=== PATIENT | female | born 1990 | race African-American/Black ===

== ENCOUNTER 2020-11-01 09:17 | Emergency (ER) | payer MEDICAID, SELFPAY ==
[2020-11-01 09:46] VITALS: BP 105/61; PULSE 69; RESP 20; TEMP 36.3; O2SAT 99
--- NOTE | 2020-11-01 10:41 | ED.BACK ---
HPI - Back Pain/Injury General Chief Complaint: Back Pain/Injury Stated Complaint: low back, right leg pain Time Seen by Provider: 11/01/20 10:13 Source: patient Mode of arrival: ambulatory Limitations: no limitations History of Present Illness HPI Narrative: This is a 30-year-old female that presents the emergency department for low back pain since yesterday morning. Reports no known injury or trauma. Reports the pain radiates down her right leg. She took ibuprofen and Tylenol with some relief yesterday. She did not take any pain medication yet today. Denies fever, saddle anesthesia, or bowel/bladder incontinence. Related Data Allergies Allergy/AdvReac Type Severity Reaction Status Date / Time No Known Allergies Allergy Verified 11/01/20 09:49 Review of Systems Review of Systems: Narrative: CONSTITUTIONAL: Denies fever SKIN: Denies rash MUSCULOSKELETAL: Reports back pain, joint pain, and myalgia. NEUROLOGIC: Denies numbness, or weakness. All systems reviewed & are unremarkable except as noted in HPI and below PMFSH Past Medical History Medical History (Updated 11/01/20 @ 11:03 by Akosua Lyon PA-C) No active medical problems Social History Social History (Updated 11/01/20 @ 10:43 by Akosua Lyon PA-C) Substance use: current Substance use type: marijuana Gender identity (if verbalized by the patient): Female Exam Narrative: Exam Narrative: GENERAL: Well-appearing, well-nourished, and in no acute distress. HEAD: Normocephalic, atraumatic. EYES: EOMI. CHEST: Clear to auscultation. No respiratory distress. No wheezes rales or rhonchi HEART: Regular rate and rhythm. No murmur heard. Normal peripheral pulses. ABDOMEN: Soft, nontender, nondistended, normal active bowel sounds. BACK: No midline spinal tenderness EXTREMITIES: Normal range of motion. No edema. Strength equal in bilateral lower extremities (5/5). Normal DP pulses SKIN: Warm, dry, no rash. NEURO: No focal deficits. Alert and oriented x3. PSYCH: Normal mood and affect Course Vital Signs Vital signs: Vital Signs Temperature 97.4 F L 11/01/20 09:46 Pulse Rate 69 11/01/20 09:46 Respiratory Rate 20 11/01/20 09:46 Blood Pressure 105/61 11/01/20 09:46 Pulse Oximetry 99 11/01/20 09:46 Temperature 97.4 F L 11/01/20 09:46 Pulse Rate 69 11/01/20 09:46 Respiratory Rate 20 11/01/20 09:46 Blood Pressure 105/61 11/01/20 09:46 Pulse Oximetry 99 11/01/20 09:46 MDM - Back Pain/Injury MDM Narrative Medical decision making narrative: Patient presents to the ER for low back pain starting yesterday, radiating down the right leg. No known injury or trauma. Patient is neurologically intact. Given toradol, valium and tylenol with improvement. She was instructed to rest, continue otc pain medication as well as muscle relaxer as needed for pain. Patient is to follow up with primary care doctor. She was given warnings to return to the ER Critical Care Time Critical Care Time Critical Care Time: No Discharge Plan Discharge Clinical Impression: Sciatica Qualifiers: Laterality: right Qualified Code(s): M54.31 - Sciatica, right side Patient Disposition: Home, Self-Care Condition: Stable Instructions: Sciatica (ED) Additional Instructions: Return to the ER if you experience fever, weakness, numbness, bowel/bladder incontinence, or any other symptoms that are concerning to you Rest, use ice/heat, take anti-inflammatories (Aleve, Ibuprofen, Naproxen, etc) or Tylenol as needed for pain as well as muscle relaxer (Flexeril) as needed for pain. Muscle relaxers can make you drowsy, do not drive if you take this. Take steroid taper as prescribed Follow up with primary care doctor Prescriptions: New cyclobenzaprine 10 mg tablet 10 mg PO TID PRN (Reason: muscle spasm) Qty: 10 RF: 0 methylprednisolone [Medrol ([place])] 4 mg tablets,dose pack See Rx Instructions .ROUTE .COMPLEX Qty: 21 RF: 0 Follow-u
[2020-11-01] MEDS: diazePAM INJ (*CRX) 10 MG/2 ML SYRINGE 5 MG IM (10:44)
[2020-11-01] MEDS: ACETAMINOPHEN 500 MG TABLET 1000 MG PO (10:44)
[2020-11-01] MEDS: KETOROLAC (*BKC) 60 MG/2 ML VIAL IM (10:45)
[2020-11-01 12:23] VITALS: BP 122/78; PULSE 70; RESP 18; O2SAT 99
== END 2020-11-01 12:25 | disposition home or self-care (01) ==
PROVIDERS: Emergency Provider Emergency Medicine
DX: M54.41 Lumbago with sciatica, right side (principal)
CPT/HCPCS: 96372; 99284; A9270; J1885; J3360